=== PATIENT | female | born 1980 | race Caucasian/White ===

== ENCOUNTER 2016-10-26 14:34 | Emergency (ER) | payer OTHER ==
[~2016-10-26] VITALS: Ht 170.2 cm; Wt 68.0 kg
[2016-10-26 15:04] VITALS: BP 92/66
[2016-10-26] MEDS ORDERED: HYDR-971 PO (15:48)
--- NOTE | 2016-10-26 15:48 | PHYS DOC ---
Past Medical History Past Medical History: No Pertinent History Past Surgical History: Other Additional Past Surgical Histo: KNEE,SKIN GRAFT MOUTH Additional Information: Nonsmoker Alcohol Use: Occasionally Drug Use: None Adult General Chief Complaint Chief Complaint: INSECT BITE HPI HPI Patient is a 36 year old female who presents for wound check of a wound on the right posterior thigh near the knee. The patient reports a spider bite on Tuesday. She was seen at an urgent care yesterday and prescribed Bactrim and Bactroban. She was told that it was a brown recluse bite. She noted that the wound was larger today. The urgent care recommended that she come to the hospital for evaluation. She denies any fevers or drainage from the wound. She does not have a PCP. Review of Systems Review of Systems Constitutional: Denies fever or chills. [] Musculoskeletal: Denies back pain or joint pain. Reports right posterior thigh pain. Integument: Denies rash or skin lesions. Reports right posterior thigh wound. Neurologic: Denies focal weakness or sensory changes. [] Allergies Allergies Allergies Coded Allergies Type Severity Reaction Last Updated Verified No Known Drug Allergies 10/26/16 No Physical Exam Physical Exam Constitutional: Well developed, well nourished, no acute distress, non-toxic appearance. [] HENT: Normocephalic, atraumatic, oropharynx moist. [] Eyes: PERRLA, EOMI, conjunctiva normal, no discharge. [] Skin: Warm, dry, no erythema, no rash. There is a 2 cm area of induration on the right posterior thigh just proximal to the knee. The area is hyperpigmented. There is no surrounding erythema or warmth. Extremities: Right posterior thigh tenderness, ROM intact, no edema. Distal pulses equal bilaterally. [] Neurologic: Alert and oriented X 3, normal motor function, normal sensory function, no focal deficits noted. [] Psychologic: Affect normal, judgement normal, mood normal. [] Current Patient Data Vital Signs Vital Signs Date Time Temp Pulse Resp B/P Pulse Ox O2 Delivery O2 Flow Rate FiO2 10/26/16 15:04 99 86 12 92/66 96 Room Air 99.0 EKG EKG [] Radiology/Procedures Radiology/Procedures [] Course & Med Decision Making Course & Med Decision Making Pertinent Labs and Imaging studies reviewed. (See chart for details) [] Dragon Disclaimer Dragon Disclaimer This electronic medical record was generated, in whole or in part, using a voice recognition dictation system. Departure Departure Impression: Primary Impression: Abscess of right thigh Disposition: 01 HOME, SELF-CARE Condition: STABLE Patient Instructions: Abscess, [id number] Additional Instructions: Please continue the antibiotic and antibiotic ointment prescribed by the urgent care. Please take the prescribed pain medication as directed. Do not drive or operate heavy machinery while taking the medication. Please apply warm compress to the wound to encourage drainage. Please follow-up with a primary care provider or return to the emergency department if you notice worsening of the wound. Return to the emergency department if you have any new or concerning symptoms. Scripts Hydrocodone/Apap 5-325 ([place] 5-325 Tablet)1 Each Tablet1 Tab PO PRN Q6HRS PRN PAIN #20 TAB Prov:WALTER CAMPBELL 10/26/16 WALTER CAMPBELL Oct 26, 2016 15:48
== END 2016-10-26 15:52 | disposition home or self-care (01) ==
LOC: ER 14:34
DX: L02.415 Cutaneous abscess of right lower limb (principal); W57.XXXA Bitten or stung by nonvenomous insect and other nonvenomous arthropods, initial encounter; Y93.89 Activity, other specified; Y99.8 Other external cause status; Y92.89 Other specified places as the place of occurrence of the external cause
CPT/HCPCS: 99283